=== PATIENT | female | born 1965 | race Caucasian/White ===

== ENCOUNTER → 2016-06-06 | Outpatient (CLI) | payer MEDICARE, OTHER ==
[~2016-06-06] MED LIST: GADOBUTROL 7.5 MMOL/7.5 ML VIAL IV ONE; LORA1TAB PO
--- NOTE | 2016-06-06 14:51 | RAD ---
PROCEDURE MRI brain with and without contrast. HISTORY Astrocytoma resection. Radiation and chemotherapy. No new symptoms. Most recent MRI demonstrated changes suspicious for residual or recurrent tumor. TECHNIQUE Sagittal T1, axial T1, axial T2, axial FLAIR, axial T2 gradient, diffusion imaging with ADC map, post-contrast axial, and post-contrast coronal sequences are provided. 6 milliliters of intravenous Gadavist was administered without complication COMPARISON Most recent comparison is from April 14, 2016. FINDINGS Postoperative changes in the left frontal lobe are again noted. Increased signal on diffusion imaging without ADC correlate along the posterior margin of the operative cavity has similar appearance to prior and is probably T2 shine through. FLAIR hyperintensity about the operative cavity is similar to prior. Linear enhancement along the medial aspect of the operative cavity is probably unchanged. 3 millimeter nodular focus of enhancement within the left frontal white matter medial to the operative cavity is stable, better apparent on the axial image of the current study. No new area of enhancement in the operative cavity is identified. There is probably a posterior left frontal developmental venous anomaly, normal vascular variant. There is ex vacuo dilation of the left lateral ventricle, frontal horn, unchanged. There is prominence of the ventricles and sulci. There is no acute intracranial hemorrhage or extra-axial fluid collection. There is old blood product in the operative cavity and in the left temporal lobe. There is no restricted diffusion to suggest an acute infarct. Cervicomedullary junction is unremarkable. Intracranial flow voids are preserved. There is pansinus mucosal thickening, greatest involvement is of the maxillary sinuses. IMPRESSION Stable appearance of the operative cavity with similar amount of FLAIR hyperintensity in the adjacent white matter. However, this is increased when compared to May 23, 2013. Areas of both linear and nodular enhancement within this FLAIR hyperintensity medial to the operative cavity is similar to April and new from 2013. Again, appearance is concerning for residual or recurrent tumor. Electronically signed by: Lizandro Leyva MD (Jun 06, 2016 14:50:05)
== END | disposition home or self-care (01) ==
LOC: MRI 12:18
PROVIDERS: ATTEND Internal Medicine Hematology & Oncology
DX: C71.9 Malignant neoplasm of brain, unspecified (principal); R55 Syncope and collapse
CPT/HCPCS: 70553; A9585

== ENCOUNTER → 2017-07-29 | Outpatient (CLI) | payer MEDICARE, OTHER ==
[2017-07-29] MEDS: GADOBUTROL 7.5 MMOL/7.5 ML VIAL IV (13:59)
== END | disposition home or self-care (01) ==
LOC: KCIC MRI 13:03
DX: R47.81 Slurred speech (principal); R41.0 Disorientation, unspecified; J34.1 Cyst and mucocele of nose and nasal sinus
CPT/HCPCS: 70553; A9585